=== PATIENT | female | born 1975 | race Caucasian/White ===

== ENCOUNTER 2018-08-07 18:29 | Emergency (ER) | payer BC, OTHER ==
[~2018-08-07] VITALS: Ht 162.6 cm; Wt 55.5 kg
[2018-08-07 18:31] VITALS: BP 138/85; PULSE 73; RESP 18; Ht 162.6 cm; Wt 55.5 kg
--- NOTE | 2018-08-07 21:06 | ERD ---
ER Documentation Chief Complaint Chief Complaint 11 weeks preg, light vag. bleed since last night. denies pain. HPI 42-year-old female who is G4, P3 approximately 11 weeks stating that she had some very light vaginal bleeding that she describes as spotting that occurred last night after she had sexual intercourse. She had a little bit of spotting today 2. She denies any pelvic pain. No fever. No nausea or vomiting or diarrhea. No dysuria hematuria frequency. ROS All systems reviewed and are negative except as per history of present illness. Allergies Allergies: Coded Allergies: No Known Allergy (Unverified , 08/07/18) PMhx/Soc Medical and Surgical Hx: pt denies Medical Hx, pt denies Surgical Hx History of Surgery: No Anesthesia Reaction: No Hx Neurological Disorder: No Hx Respiratory Disorders: No Hx Cardiac Disorders: No Hx Psychiatric Problems: No Hx Miscellaneous Medical Probl: No Hx Alcohol Use: No Hx Substance Use: No Hx Tobacco Use: No Smoking Status: Never smoker FmHx Family History: No diabetes Physical Exam Vitals Vital Signs Date Temp Pulse Resp B/P (MAP) Pulse Ox O2 O2 Flow FiO2 Time Delivery Rate 08/07/18 98.1 73 18 138/85 99 18:31 (102) Physical Exam INITIAL VITAL SIGNS: Reviewed by me GENERAL: Awake, alert and oriented x 4, well appearing, nontoxic, speaking in full sentences. No acute distress HEAD: Atraumatic NECK: Supple. No masses. Full range of motion. No meningismus. No midline tenderness. EYES: EOMI. PERRL. RESPIRATORY: Clear to auscultation bilaterally. Symmetric chest wall rise. No wheezing or rales. No accessory muscle use. CV: Regular rate and rhythm. No murmurs, rubs, or gallops. ABDOMEN: Soft, non-distended. Nontender. Negative [place]. Negative McBurneys point tenderness. No CVA tenderness bilaterally. No guarding. No rebound. Result Diagram: 08/07/181942 Results 24 hrs Laboratory Tests Test 08/07/18 19:43 White Blood Count 8.4 10^3/ul Red Blood Count 4.41 10^6/ul Hemoglobin 13.6 g/dl Hematocrit 40.6 % Mean Corpuscular Volume 92.1 fl Mean Corpuscular Hemoglobin 30.8 pg Mean Corpuscular Hemoglobin Concent 33.5 g/dl Red Cell Distribution Width 11.9 % Platelet Count 294 10^3/UL Mean Platelet Volume 10.4 fl Immature Granulocytes % 0.700 % Neutrophils % 65.6 % Lymphocytes % 26.0 % Monocytes % 6.0 % Eosinophils % 1.0 % Basophils % 0.7 % Nucleated Red Blood Cells % 0.0 /100WBC Immature Granulocytes # 0.060 10^3/ul Neutrophils # 5.5 10^3/ul Lymphocytes # 2.2 10^3/ul Monocytes # 0.5 10^3/ul Eosinophils # 0.1 10^3/ul Basophils # 0.1 10^3/ul Nucleated Red Blood Cells # 0.0 10^3/ul Urine Color YELLOW Urine Clarity CLEAR Urine pH 5.0 Urine Specific [place] 1.012 Urine Ketones NEGATIVE mg/dL Urine Nitrite NEGATIVE mg/dL Urine Bilirubin NEGATIVE mg/dL Urine Urobilinogen NEGATIVE mg/dL Urine Leukocyte Esterase NEGATIVE Ernestina/ul Urine Microscopic RBC 1 /HPF Urine Microscopic WBC 1 /HPF Urine Bacteria FEW /HPF Urine Hemoglobin 1+ mg/dL Urine Glucose NEGATIVE mg/dL Urine Total Protein NEGATIVE mg/dl Beta HCG, Quantitative 3560.1 mIU/ml Procedures/MDM The differential diagnosis includes but is not limited to threatened/incomplete/inevitable/complete , ectopic , non- related bleeding, and others. Patient's findings are consistent with demise. She was given copies of all of her labs and ultrasound. She has appointment with CAR LUBRICATOR tomorrow. Patient counseled regarding my diagnostic impression and care plan. Prior to discharge all questions answered. Pt agrees with treatment plan and understands strict return precautions. Pt is instructed to follow up with primary care provider within 24-48 hours. Precautionary instructions provided including instructions to return to the ER if not improving or for any worsening or changing symptoms or concerns. Departure Diagnosis: Primary Impression: demise Condition: Stable Patient Instructions: Possible Miscarriage (Threatened ) Additional Instructions: Llame al doctor [place] y aubrey tresa WINNIE PARA DENTRO DE 1-2 KUMAR.Dgale a la secretaria que nosotros le instruimos hacer esta winnie.Avise o llame si jasso condicin se empeora antes de la winnie. Regresa aqui si peor o no mejor. KRYSTAL MCPHERSON PA-C Aug 07, 2018 21:06
== END 2018-08-07 21:07 | disposition home or self-care (01) ==
LOC: FTE 18:29
DX: O02.1 Missed abortion (principal)
CPT/HCPCS: 36415; 76801; 81001; 84702; 85025; 86900; 86901; Z7502

== ENCOUNTER 2018-08-09 17:23 | Emergency (ER) | payer BC ==
[~2018-08-09] VITALS: Wt 65.0 kg
[2018-08-09] MEDS ORDERED: SOD CHLORIDE 0.9% 1,000 ML IV STA (18:09)
[2018-08-09] MEDS ORDERED: ACETAMINOPHEN 325 MG TAB PO STA (18:09)
--- NOTE | 2018-08-09 18:20 | ERD ---
ER Documentation Chief Complaint Chief Complaint VAG BLEED 12 WEEKS PREG HEAVY BLEEDING TODAY HPI This is a 42-year-old female who presents to the emergency room with complaint of vaginal bleeding during . Patient was seen at this ER 3 days ago and diagnosed with demise, seen at her primary care provider yesterday w ith no heartbeat detected on ultrasound, patient was offered "pills" to help with miscarriage, patient did not take medications. Today stating she had white drainage and is having contractions. Patient alert and appropriate at time of evaluation. Gestation states: 11 weeks 6 days ROS All systems reviewed and are negative except as per history of present illness. Medications Home Meds Active Scripts Ibuprofen* (Motrin*) 600 Mg Tab, 600 MG PO Q6 for pain, #30 TAB Prov:BRO LOWE NP 08/09/18 Allergies Allergies: Coded Allergies: No Known Allergy (Unverified , 08/07/18) PMhx/Soc Medical and Surgical Hx: pt denies Medical Hx, pt denies Surgical Hx History of Surgery: No Anesthesia Reaction: No Hx Neurological Disorder: No Hx Respiratory Disorders: No Hx Cardiac Disorders: No Hx Psychiatric Problems: No Hx Miscellaneous Medical Probl: No Hx Alcohol Use: No Hx Substance Use: No Hx Tobacco Use: No Smoking Status: Never smoker FmHx Family History: No diabetes, No coronary disease, No other Physical Exam Vitals Vital Signs Date Temp Pulse Resp B/P (MAP) Pulse Ox O2 O2 Flow FiO2 Time Delivery Rate 08/09/18 98.9 84 18 117/74 100 Room Air 21:25 (88) 08/09/18 84 20 132/82 100 Room Air 19:35 (99) 08/09/18 99.5 106 18 157/70 99 17:25 (99) Physical Exam Const: No acute distress Head: Atraumatic Eyes: Normal Conjunctiva ENT: Normal External Ears, Nose and Mouth. Neck: Full range of motion. No meningismus. Resp: Clear to auscultation bilaterally Cardio: Regular rate and rhythm, no murmurs Abd: Soft, non tender, non distended. Normal bowel sounds Skin: No petechiae or rashes Back: No midline or flank tenderness Ext: No cyanosis, or edema Neur: Awake and alert Psych: Normal Mood and Affect Result Diagram: 08/09/18 6290 Results 24 hrs Laboratory Tests Test 08/09/18 18:41 White Blood Count 14.6 10^3/ul Red Blood Count 3.93 10^6/ul Hemoglobin 12.3 g/dl Hematocrit 36.0 % Mean Corpuscular Volume 91.6 fl Mean Corpuscular Hemoglobin 31.3 pg Mean Corpuscular Hemoglobin Concent 34.2 g/dl Red Cell Distribution Width 11.9 % Platelet Count 277 10^3/UL Mean Platelet Volume 9.9 fl Immature Granulocytes % 0.400 % Neutrophils % 78.7 % Lymphocytes % 14.6 % Monocytes % 5.1 % Eosinophils % 0.6 % Basophils % 0.6 % Nucleated Red Blood Cells % 0.0 /100WBC Immature Granulocytes # 0.060 10^3/ul Neutrophils # 11.5 10^3/ul Lymphocytes # 2.1 10^3/ul Monocytes # 0.8 10^3/ul Eosinophils # 0.1 10^3/ul Basophils # 0.1 10^3/ul Nucleated Red Blood Cells # 0.0 10^3/ul Urine Color RED Urine Clarity SLIGHTLY CLOUDY Urine pH 6.0 Urine Specific [place] 1.006 Urine Ketones TRACE mg/dL Urine Nitrite NEGATIVE mg/dL Urine Bilirubin NEGATIVE mg/dL Urine Urobilinogen NEGATIVE mg/dL Urine Leukocyte Esterase NEGATIVE Ernestina/ul Urine Microscopic RBC > 182 /HPF Urine Microscopic WBC 0 /HPF Urine Bacteria FEW /HPF Urine Hemoglobin 2+ mg/dL Urine Glucose 1+ mg/dL Urine Total Protein 2+ mg/dl Beta HCG, Quantitative 1549.2 mIU/ml Current Medications Medications Dose Sig/Laura Start Time Status Last (Trade) Ordered Route PRN Stop Time Admin Dose Reason Admin Sodium 1,000 ml @ Q1H STAT 08/09/18 DC 08/09/18 Chloride 1,000 mls/hr IV 18:09 19:56 08/09/18 19:08 650 mg ONCE STAT 08/09/18 DC 08/09/18 Acetaminophen PO 18:09 19:56 (Tylenol 08/09/18 18:11 Tab) Sodium 1,000 ml @ Q1H ONCE 08/09/18 DC Chloride 1,000 mls/hr IV 20:30 08/09/18 21:29 Ketorolac 30 mg ONCE STAT 08/09/18 DC Tromethamine IV 20:17 (Toradol) 08/09/18 20:18 Cefazolin 50 ml @ ONCE IVPB 08/09/18 DC 08/09/18 Sodium 100 mls/hr 21:30 21:37 08/09/18 21:59 Procedures/MDM This is a 42-year-old female presenting to the emergency room with complaint of continued vaginal bleeding. Patient was diagnosed with demise 3 days ago, seen at her OB yesterday but did not follow the plan to take occasions to help complete her miscarriage. She is here today because the bleeding continues and she is having contractions. ED COURSE: The patient was stable throughout ED course. I kept the patient and/or family informed of laboratory and diagnostic imaging results throughout the ED course. DIAGNOSTIC IMAGING: Post miscarriage: Limited study without evidence of retained products of conception or blood clots in the endometrial canal. Read by radiologist. PROCEDURES: Patient had spontaneous miscarriage with passing of tissue while in ED. POC sent to pathology. Pt tolerated well, remained hemodynamically stable. Vaginal exam with removal of tissue and clean-up of vaginal vault s/p miscarriage. This MANAGER OF FINANCIAL attempted to remove all tissue and was unable to successfully remove tissue from os and abort bleeding. Laborist on-call Dr. Mast came and explored vaginal vault and was able to successfully remove tissue resulting in clean os. Repeat vaginal US reassuring for absence of retained products. MEDICATIONS GIVEN: NS, tylenol Patient tolerated medication well with no adverse reactions. Patient reported improvement in pain. MDM: This patient has had a completed miscarriage. She is stable and appropriate for follow-up with PMD. Patient provided with strict ER precautions. Patient states she has follow-up appt already made with her OB for 2 days. Pt verbalized understanding of s/sx of infection, bleeding, hypotension and when to return to ER. There is low suspicion for retained products, infection, or concern for impending hemorrhage. Patient counseled regarding my diagnostic impression and care plan. Prior to discharge all questions answered using spout liner helper service. Pt agrees with treatment plan and understands strict return precautions. DISPOSITION: The patient has been discharge home to follow-up with community physician. Departure Diagnosis: Primary Impression: Miscarriage Condition: Stable Patient Instructions: Miscarriage Referrals: [facility] Additional Instructions: Thank you very much for allowing us to participate in your care. Your health and safety is our top priority at [facility]. Call your primary care doctor TOMORROW for an appointment during the next 2-4 days and bring all the information and medications prescribed. Have prescriptions filled and follow precisely the directions on the label. If the symptoms get worse and your provider is unavailable, return to the Emergency Department immediately. BRO LOWE NP Aug 09, 2018 18:20
[2018-08-09] MEDS ORDERED: KETOROLAC 30 MG INJ IV STA (20:17)
[2018-08-09] MEDS ORDERED: SOD CHLORIDE 0.9% 1,000 ML IV ONE (20:30)
[2018-08-09] MEDS ORDERED: CEFAZOLIN 1 GM/50 ML (PMX) 50 ML IVPB SCH (21:30)
[2018-08-09] MEDS ORDERED: IBUP-1542 PO (22:28)
--- NOTE | 2018-08-09 22:32 | CONS ---
Assessment/Plan Assessment/Plan Assessment/Plan (Daily) Complete AB Pelvic examination revealed no further active bleeding Patient received antibiotics IV x1 dose Patient Rh is positive Patient received prescription for pain meds Patient counseled to follow-up with her own [facility] clinic on Sunday, August 12, 2018 Consultation Date/Type/Reason Admit Date/Time Date of Consultation: Aug 09, 2018 Type of Consult Gynecology Reason for Consultation SAB Date/Time of Note DATE: 08/09/18 TIME: 22:22 Hx of Present Illness This is a 42-year-old who was recently diagnosed with missed AB presents with vaginal bleeding and passing products of conception Gestational sac and products of conception were sent for pathology evaluation Patient was examined to reassure the complete passage of all products of conception Constitutional: no complaints, improved Eyes: no complaints ENT: no complaints Respiratory: no complaints Cardiovascular: no complaints Gastrointestinal: no complaints Genitourinary: bleeding (Vaginal bleeding) Musculoskeletal: no complaints Skin: no complaints Neurologic: no complaints Endocrine: no complaints Lymphatic: no complaints Psychological: no complaints, nl mood/affect Immunologic: no complaints Past Medical History Medical History: no pertinent history Home Meds Active Scripts Ibuprofen* (Motrin*) 600 Mg Tab, 600 MG PO Q6 for pain, #30 TAB Prov:BRO LOWE PRESS MAINTAINER 08/09/18 Allergies: Coded Allergies: No Known Allergy (Unverified , 08/07/18) Past Surgical History Past Surgical Hx: no surgical history Family History Significant Family History: no pertinent family hx Social History Smoking Status: Never smoker Exam/Review of Systems Exam Vitals Vital Signs Date Temp Pulse Resp B/P (MAP) Pulse Ox O2 O2 Flow FiO2 Time Delivery Rate 08/09/18 98.9 84 18 117/74 100 Room Air 21:25 (88) Constitutional: alert, oriented, well developed Additional Comments Upon pelvic speculum examination Blood clots and tissues were removed from cervical os No further bleeding noted Results Result Diagram: 08/09/18 5444 Results 24hrs Laboratory Tests Test 08/09/18 18:41 White Blood Count 14.6 #H Red Blood Count 3.93 L Hemoglobin 12.3 Hematocrit 36.0 L Mean Corpuscular Volume 91.6 Mean Corpuscular Hemoglobin 31.3 Mean Corpuscular Hemoglobin Concent 34.2 Red Cell Distribution Width 11.9 Platelet Count 277 Mean Platelet Volume 9.9 Immature Granulocytes % 0.400 Neutrophils % 78.7 H Lymphocytes % 14.6 L Monocytes % 5.1 Eosinophils % 0.6 Basophils % 0.6 Nucleated Red Blood Cells % 0.0 Immature Granulocytes # 0.060 H Neutrophils # 11.5 H Lymphocytes # 2.1 Monocytes # 0.8 Eosinophils # 0.1 Basophils # 0.1 Nucleated Red Blood Cells # 0.0 Urine Color RED Urine Clarity SLIGHTLY CLOUDY A Urine pH 6.0 Urine Specific [place] 1.006 Urine Ketones TRACE A Urine Nitrite NEGATIVE Urine Bilirubin NEGATIVE Urine Urobilinogen NEGATIVE Urine Leukocyte Esterase NEGATIVE Urine Microscopic RBC > 182 H Urine Microscopic WBC 0 Urine Bacteria FEW A Urine Hemoglobin 2+ H Urine Glucose 1+ H Urine Total Protein 2+ H Beta HCG, Quantitative 1549.2 Imaging Imaging PROCEDURE: US OB. CLINICAL INDICATION: Evaluate for retained products of conception TECHNIQUE: Transabdominal views of the pelvis are available for review. COMPARISON: Earlier preoperative study same date 1823 hours FINDINGS: There is no free fluid in the pelvis. The endometrial canal now has a maximal AP dimension of 17 mm. There is no evidence of endometrial fluid or endometrial mass. There is no fluid or mass in the endocervical canal. IMPRESSION: 1. Limited study without evidence of retained products of conception or blood clots in the endometrial canal. RPTAT:AAJJ Physician Evan Date Time Electronically viewed and signed by Physician Evan on 08/09/2018 22:18 GW/ CC: BRO LOWE NP [id number] SARAH BETH MORGAN MD Aug 09, 2018 22:32
[2018-08-09 22:36] VITALS: BP 121/72; PULSE 73; RESP 18
== END 2018-08-09 22:43 | disposition home or self-care (01) ==
LOC: FTE 17:23
DX: O03.9 Complete or unspecified spontaneous abortion without complication (principal)
CPT/HCPCS: 36415; 76801; 81001; 84702; 85025; 96361; 96365; J0690; J7030; Z7502; Z7610

== ENCOUNTER 2018-08-10 13:48 | Emergency (ER) | payer BC ==
[~2018-08-10] VITALS: Ht 157.5 cm; Wt 55.2 kg
[~2018-08-10 13:48] MED LIST: IBUP-1542 PO
[2018-08-10 13:56] VITALS: BP 111/53; PULSE 90; RESP 17; Ht 157.5 cm; Wt 55.2 kg
--- NOTE | 2018-08-10 18:50 | ERD ---
ER Documentation Chief Complaint Chief Complaint PT HAS VB 3RD VISIT IN 4 DAYS POST SPONTANEOUS HPI History of Present Illness: 42-year-old female with no past medical history waylon ng in today with complaint of vaginal bleeding. Patient reports she was at [facility] emergency department yesterday it was confirmed that she is having a miscarriage. Patient is concerned that she is losing too much blood and is on sure if large clots that she is passing is too much. Patient reports using approximately 3 pads in the past 12 hours. Patient denies dizziness, palpitations, weakness, syncopal episodes. Patient reports passing quite at approximately 10 AM this morning. Patient reports that she feels that she just passed a clot since arriving to the emergency department. No acute distress noted At home pharmacological/nonpharmacological treatment for symptoms: DENIES Denies social concerns; Denies recent foreign travel Mask Layout Designer patient #[id number] use for HPI and disposition. ROS All systems reviewed and are negative except as per history of present illness. Medications Home Meds Active Scripts Ibuprofen* (Motrin*) 600 Mg Tab, 600 MG PO Q6 for pain, #30 TAB Prov:BRO LOWE CLEANING PORTER 08/09/18 Allergies Allergies: Coded Allergies: No Known Allergy (Unverified , 08/10/18) PMhx/Soc History of Surgery: No Anesthesia Reaction: No Hx Neurological Disorder: No Hx Respiratory Disorders: No Hx Cardiac Disorders: No Hx Psychiatric Problems: No Hx Miscellaneous Medical Probl: No Hx Alcohol Use: No Hx Substance Use: No Hx Tobacco Use: No Smoking Status: Never smoker FmHx Family History: No diabetes, No coronary disease Physical Exam Vitals Vital Signs Date Temp Pulse Resp B/P (MAP) Pulse Ox O2 O2 Flow FiO2 Time Delivery Rate 08/10/18 98.6 90 17 111/53 100 13:56 (72) Physical Exam Const: No acute distress, afebrile Head: Atraumatic Eyes: Normal Conjunctiva ENT: Normal External Ears, Nose and Mouth. Neck: Full range of motion. No meningismus. Resp: Clear to auscultation bilaterally Cardio: Regular rate and rhythm, no murmurs Abd: Soft, non tender, non distended. No guarding, no masses, no rigidity Skin: No petechiae or rashes Back: No midline or flank tenderness Ext: No cyanosis, or edema Neur: Awake and alert x3, speaking in clear sentences, no focal deficits or facial asymmetry Psych: Normal Mood and Affect Vaginal exam deferred, patient refused Procedures/MDM ED course includes a thorough examination and history. Medications: -- Imaging: -- Labs: Cytology for products of conception Low suspicion for life-threatening medical emergency. Low suspicion for gynecologic or obstetric emergency requires hospitalization or immediate intervention. Patient is hemodynamically stable not symptomatic to blood loss. No signs of patient hemorrhaging, patient has only had approximately 3 pads in the past 12 hours Otherwise healthy patient presenting with constellation of symptoms likely representing uncomplicated miscarriage as characterized by history, physical exam findings. No respiratory distress, otherwise relatively well appearing and nontoxic. Patient educated on diagnoses, prescriptions, follow-up care, return precautions. Strict return precautions given for worsening condition; questions answered discharge. Disposition for discharge with followup in 2 days with PCP/clinic. Departure Diagnosis: Primary Impression: Miscarriage Condition: Stable Patient Instructions: Miscarriage Referrals: TATY MANN MD (PCP) MANAGER [place] [id number] [facility] [address] [place] [address] OFFICE FAX BHARATI TERRY [address] [place] [address] [address] [address] [place] [address] [address] [facility] [address] [facility] [address] [address] [address] [address] [place] [address] [facility] [address] [address] [place] [address] [phone] [facility] [address] - DANYEL CEBALLOS [address], [facility] [address] [address] LECHUGA, [facility] [address] [address] [address] VILLARREAL, FARID [address] [place] [address] COUNTS INCLUDE 234 BEDS AT THE [facility] () Talia se lockhart hecho un examen mdico de control que le indica que no est en tresa condicin que requiera tratamiento urgente en el Departamento de Emergencia. Un estudio ms profundo y el tratamiento de torres condicin pueden esperar sin ningn riesgo hasta que usted sea atendida/o en el consultorio de torres mdico o tresa clnica. Es responsabilidad suya arreglar tresa morgan para el seguimiento del yaya. MANEJO DE CONDICIONES NO URGENTES EN EL FUTURO 1) Si usted tiene un mdico de atencin primaria: Usted debera llamar a torres mdico de atencin primaria antes de venir al departamento de emergencia. Despus de las horas de consultorio, torres doctor o torres asociado/a est disponible por telfono. El mdico o enfermero de netta en el servicio telefnico puede asesorarle por barber medio para atender el problema, o yaya contrario se puede programar tresa morgan. 2) Si usted no tiene un mdico de atencin primaria: Llame al mdico o clnica de referencia que aparece abajo mark las horas de consultorio para hacer tresa morgan para que le vean. CLINICAS: [facility] [phone] [address] [facility] [phone] [facility] [phone] [address] [facility]. [facility] [phone] [facility]. [facility] [phone] [facility]. [phone] [address] [facility]. [facility] () Talia se lockhart hecho un examen mdico de control que le indica que no est en tresa condicin que requiera tratamiento urgente en el Departamento de Emergencia. Un estudio ms profundo y el tratamiento de torres condicin pueden esperar sin ningn riesgo hasta que usted sea atendida/o en el consultorio de torres mdico o tresa clnica. Es responsabilidad suya arreglar tresa morgan para el seguimiento del yaya. MANEJO DE CONDICIONES NO URGENTES EN EL FUTURO 1) Si usted tiene un mdico de atencin primaria: Talia debera llamar a torres mdico de atencin primaria antes de venir al departamento de emergencia. Despus de las horas de consultorio, torres doctor o torres asociado/a est disponible por telfono. El mdico o enfermero de netta en el servicio telefnico puede asesorarle por barber medio para atender el problema, o yaya contrario se puede programar tresa morgan. 2) Si usted no tiene un mdico de atencin primaria: Llame al mdico o condado institucions de referencia que aparece abajo mark las horas de consultorio para hacer tresa morgan para que le vean. SI USTED NO PUEDE PAGAR PARA LUIS UN MEDICO puede ir a: [facility] [address] [place] [address] [facility] [address] [place] [address] [facility] [address] [place] [address] [address] [place] [address] [place] [address] Additional Instructions: Muchas jeff por permitirnos participar en torres cuidado. Torres bahman y seguridad es nuestra principal prioridad en [facility]. Es importante leer todas las instrucciones de dot y la educacin que se proporcionan en torres paquete de dot. Llame a torres mdico de cabecera MAANA para tresa morgan mark los prximos 2 a 4 roberson y traiga toda la informacin. Si lockhart aumentado el sangrado con remojo 1 almohadilla por hora, regrese a la sola de emergencias. Si tiene dificultad para respirar, mareos, desmayo; Regreso al servicio de urgencias. Si los sntomas empeoran y torres proveedor no est disponible, regrese inmediatamente al Departamento de Emergencias. ---- Thank you very much for allowing us to participate in your care. Your health and safety is our top priority at [facility]. It is important to read all discharge instructions and education provided in your discharge packet. Call your primary care doctor TOMORROW for an appointment during the next 2-4 days and bring all the information. If you have increased bleeding with soaking 1 pad per hour, return to emergency room. If you have any shortness of breath, dizziness, passing out; Return to the emergency room department If the symptoms get worse and your provider is unavailable, return to the Emergency Department immediately. KINSEY CAPUTO NP Aug 10, 2018 18:50
== END 2018-08-10 17:01 | disposition home or self-care (01) ==
LOC: FTE 13:48
DX: O03.9 Complete or unspecified spontaneous abortion without complication (principal)
CPT/HCPCS: 88305; 99282

== ENCOUNTER 2018-09-24 18:40 | Emergency (ER) | payer BC ==
[~2018-09-24] VITALS: Ht 162.6 cm; Wt 56.0 kg
[2018-09-24 19:14] VITALS: Ht 162.6 cm; Wt 56.0 kg
--- NOTE | 2018-09-24 21:15 | ERD ---
ER Documentation Chief Complaint Chief Complaint GENERALIZED AP SINCE July HPI 42-year-old female, G7, P3, status post D&C on 08/10/2018, presents to the emergency department, complaining of persistent pelvic pain associated with abdominal bloating for approximately 6 weeks. Otherwise, no fever, no chills, no vaginal bleeding, no diarrhea or constipation. The pain is described as colicky, intermittent, 6/10. ROS All systems reviewed and are negative except as per history of present illness. Medications Home Meds Active Scripts Hydrocodone/Acetaminophen ([place] 5-325 Tablet) 1 Each Tablet, 1 TAB PO BID PRN for PAIN, #6 TAB Prov:YOEL FINNEY MD 09/24/18 Ibuprofen* (Motrin*) 600 Mg Tab, 600 MG PO Q6H PRN for PAIN AND OR ELEVATED TEMP , #30 TAB Prov:YOEL FINNEY MD 09/24/18 Ibuprofen* (Motrin*) 600 Mg Tab, 600 MG PO Q6 for pain, #30 TAB Prov:BRO LOWE NP 08/09/18 Allergies Allergies: Coded Allergies: No Known Allergy (Unverified , 08/10/18) PMhx/Soc Medical and Surgical Hx: pt denies Medical Hx, pt denies Surgical Hx History of Surgery: No Anesthesia Reaction: No Hx Neurological Disorder: No Hx Respiratory Disorders: No Hx Cardiac Disorders: No Hx Psychiatric Problems: No Hx Miscellaneous Medical Probl: No Hx Alcohol Use: No Hx Substance Use: No Hx Tobacco Use: No Smoking Status: Never smoker FmHx Family History: diabetes Physical Exam Vitals Vital Signs Date Temp Pulse Resp B/P (MAP) Pulse Ox O2 O2 Flow FiO2 Time Delivery Rate 09/24/18 98.2 68 18 130/83 97 23:29 (99) 09/24/18 98.9 68 17 140/73 98 19:14 (95) Physical Exam Patient alert, oriented, vital signs stable. HEAD: Normocephalic, atraumatic. EYES: PERRLA, EOMI, Sclera and conjunctiva appear normal. NOSE: Clear and patent nostrils. EARS: Canals clear, tympanic membranes WNL. MOUTH: normal lips and tongue, no oral lesions. THROAT: Normal oropharynx, no tonsillar exudates. NECK: Supple, No lymphadenopathy. Full ROM without pain or tenderness. HEART: RRR, no rubs, murmurs, clicks or gallops. LUNGS: Clear to auscultation. ABDOMEN: Soft, minimal tenderness to deep palpation in the pelvic area, no peritoneal signs, without masses or hepatosplenomegaly. EXTREMITIES: No edema bilaterally. BACK: Full ROM, no deformity, normal back exam NEURO: Cranial nerves grossly intact, no motor or sensory deficit SKIN: No rashes, no petechia. Result Diagram: 09/24/18215509/24/182155 Results 24 hrs Laboratory Tests Test 09/24/18 21:56 09/24/18 21:58 White Blood Count 7.5 10^3/ul Red Blood Count 4.31 10^6/ul Hemoglobin 13.1 g/dl Hematocrit 40.0 % Mean Corpuscular Volume 92.8 fl Mean Corpuscular Hemoglobin 30.4 pg Mean Corpuscular Hemoglobin Concent 32.8 g/dl Red Cell Distribution Width 11.3 % Platelet Count 275 10^3/UL Mean Platelet Volume 9.9 fl Immature Granulocytes % 0.400 % Neutrophils % 57.4 % Lymphocytes % 34.3 % Monocytes % 6.0 % Eosinophils % 1.1 % Basophils % 0.8 % Nucleated Red Blood Cells % 0.0 /100WBC Immature Granulocytes # 0.030 10^3/ul Neutrophils # 4.3 10^3/ul Lymphocytes # 2.6 10^3/ul Monocytes # 0.5 10^3/ul Eosinophils # 0.1 10^3/ul Basophils # 0.1 10^3/ul Nucleated Red Blood Cells # 0.0 10^3/ul Urine Color YELLOW Urine Clarity SLIGHTLY CLOUDY Urine pH 5.0 Urine Specific [place] 1.013 Urine Ketones NEGATIVE mg/dL Urine Nitrite NEGATIVE mg/dL Urine Bilirubin NEGATIVE mg/dL Urine Urobilinogen NEGATIVE mg/dL Urine Leukocyte Esterase NEGATIVE Ernestina/ul Urine Microscopic RBC 1 /HPF Urine Microscopic WBC 9 /HPF Urine Squamous Epithelial Cells FEW /HPF Urine Bacteria FEW /HPF Urine Hemoglobin NEGATIVE mg/dL Urine Glucose NEGATIVE mg/dL Urine Total Protein NEGATIVE mg/dl Sodium Level 141 mmol/L Potassium Level 4.5 mmol/L Chloride Level 105 mmol/L Carbon Dioxide Level 29 mmol/L Anion Gap 7 Blood Urea Nitrogen 12 mg/dl Creatinine 0.72 mg/dl Est Glomerular Filtrat Rate mL/min > 60 mL/min Glucose Level 98 mg/dl Calcium Level 9.7 mg/dl Total Bilirubin 0.5 mg/dl Direct Bilirubin 0.00 mg/dl Indirect Bilirubin 0.5 mg/dl Aspartate Amino Transf (AST/SGOT) 33 IU/L Alanine Aminotransferase (ALT/SGPT) 35 IU/L Alkaline Phosphatase 69 IU/L Total Protein 7.9 g/dl Albumin 4.5 g/dl Globulin 3.40 g/dl Albumin/Globulin Ratio 1.32 Lipase 145 U/L POC Beta HCG, Qualitative NEGATIVE Procedures/MDM Vital signs stable. Differential diagnosis considered include UTI, cystitis, , endometriosis, pelvic inflammatory disease, ruptured ovarian cyst, ectopic , appendicitis, kidney stone. Less likely malignancy or acute abdomen but is still a possibility. During the ED course the patient remained stable, no new complaints. Results and clinical impression discussed with the patient who agrees with management. The patient is stable to be treated outpatient and will be discharged home. Follow up with the primary care provider in the next 48h has been recommended. If symptoms persist, worsen or new symptoms develop, then patient should return to the ED immediately. Instructions explained and given directly by me to the patient with ackno wledgment and demonstrated understanding. Disclaimer: Inadvertent spelling and grammatical errors are likely due to EHR/dictation software use and do not reflect on the overall quality of patient care. Also, please note that the electronic time recorded on this note does not necessarily reflect the actual time of the patient encounter. Departure Diagnosis: Primary Impression: Pelvic pain Condition: Stable Additional Instructions: Muchas jeff por [facility] para jasso servicio. Esperamos que en jasso visita a la sola de emergencia jasso problema medico haya sido solucionado y que se sienta mucho mejor. Para estar seguros que jasso mejoria sigue en proceso, le pedimos el favor de hacer tresa morgan de seguimiento medico con jasso doctor primario en los proximos 2-4 gil. Lleve con usted estos documentos y las medicinas recetadas. Si rima sintomas empeoran, NO SE ESPERE, por favor regrese a sola de emergencia INMEDIATAMENTE. En yaya que usted no tenga un mdico de atencin primaria: Llame al mdico o clnica comunitaria de referencia que aparece abajo mark las horas de consultorio para hacer tresa morgan para que le vean. CLINICAS: [facility] [phone] [facility] [phone] [facility] [place] [phone] [facility] [phone] [facility] [phone] [facility] [phone] YOEL AMADOR MD Sep 24, 2018 21:15
[2018-09-24] MEDS ORDERED: IBUP-1542 PO (23:14)
[2018-09-24] MEDS ORDERED: HYDR-4011 PO (23:15)
[2018-09-24 23:29] VITALS: BP 130/83; PULSE 68; RESP 18
== END 2018-09-24 23:31 | disposition home or self-care (01) ==
LOC: FTE 18:40
DX: R10.2 Pelvic and perineal pain (principal)
CPT/HCPCS: 36415; 76856; 80053; 81001; 81025; 83690; 85025; Z7502; 81003

== ENCOUNTER 2018-10-07 14:34 | Emergency (ER) | payer BC ==
[~2018-10-07] VITALS: Ht 160 cm; Wt 56.7 kg
[~2018-10-07 14:34] MED LIST changes: +HYDR-4011 PO
[2018-10-07 14:49] VITALS: BP 118/68; PULSE 79; RESP 18; Ht 160 cm; Wt 56.7 kg
--- NOTE | 2018-10-07 16:17 | ERD ---
ER Documentation Chief Complaint Chief Complaint VAGINAL BLEEDING W/CLOTS AFTER HAVING 08/09 HPI 42-year-old female, G7, P3, status post D&C on 08/10/2018, presents to the emergency department, complaining of heavy vaginal bleeding that started 3 days ago, passing clots and tissue. Otherwise, no fever, no chills, no diarrhea or constipation. ROS All systems reviewed and are negative except as per history of present illness. Medications Home Meds Active Scripts Ibuprofen* (Motrin*) 400 Mg Tab, 400 MG PO Q6H PRN for PAIN AND OR ELEVATED TEMP, #20 TAB Prov:YOEL FINNEY MD 10/07/18 Hydrocodone/Acetaminophen ([place] 5-325 Tablet) 1 Each Tablet, 1 TAB PO BID PRN for PAIN, #6 TAB Prov:YOEL FINNEY MD 09/24/18 Ibuprofen* (Motrin*) 600 Mg Tab, 600 MG PO Q6H PRN for PAIN AND OR ELEVATED TEMP, #30 TAB Prov:YOEL FINNEY MD 09/24/18 Ibuprofen* (Motrin*) 600 Mg Tab, 600 MG PO Q6 for pain, #30 TAB Prov:BRO LOWE NP 08/09/18 Allergies Allergies: Coded Allergies: No Known Allergy (Unverified , 08/10/18) PMhx/Soc History of Surgery: No Anesthesia Reaction: No Hx Neurological Disorder: No Hx Respiratory Disorders: No Hx Cardiac Disorders: No Hx Psychiatric Problems: No Hx Miscellaneous Medical Probl: No Hx Alcohol Use: No Hx Substance Use: No Hx Tobacco Use: No Physical Exam Vitals Vital Signs Date Temp Pulse Resp B/P (MAP) Pulse Ox O2 O2 Flow FiO2 Time Delivery Rate 10/07/18 98.1 79 18 118/68 100 14:49 (85) Physical Exam Const: No acute distress Head: Atraumatic Eyes: Normal Conjunctiva ENT: Normal External Ears, Nose and Mouth. Neck: Full range of motion. No meningismus. Resp: Clear to auscultation bilaterally Cardio: Regular rate and rhythm, no murmurs Abd: Soft, non tender, non distended. Normal bowel sounds Skin: No petechiae or rashes Back: No midline or flank tenderness Ext: No cyanosis, or edema Neur: Awake and alert Psych: Normal Mood and Affect Results 24 hrs Laboratory Tests Test 10/07/18 16:29 POC Beta HCG, Qualitative NEGATIVE DIAGNOSTIC IMAGING REPORT Patient: CINDY WATSON : 1975 Age: 42 Sex: F MR #: [id number] DOS: 10/07/18 1614 Ordering MD: YOEL FINNEY MD Location: [facility] Room/Bed: PROCEDURE: US Pelvis. CLINICAL INDICATION: menomethrorrhagia TECHNIQUE: Multiple sonographic images of the pelvis were obtained utilizing a transabdominal and endovaginal technique. The images were reviewed on a PACS workstation. COMPARISON: 09/24/2018 FINDINGS: The uterus is visualized and measures 9.3 x 6.1 x 4.9 cm. The endometrial echo complex measures 4 mm. There is no evidence for free fluid. The right ovary measures 2.8 x 2.1 x 1.7 cm.. The left ovary measures 2.2 x 2.5 x 2 cm. No adnexal masses are noted. IMPRESSION: Heterogeneous uterus. Bilateral ovarian flow. Correlate with test to exclude abnormal or ectopic . Physician Michelle Date Time Electronically viewed and signed by Physician Michelle on 10/07/2018 17:05 Procedures/MDM Vital signs stable, Physical exam unremarkable, abdomen soft, nontender. Patient hemodynamically stable. Differential diagnosis include but not limited to: , ovarian cyst, fibroids, endometriosis, malignancy, dysfunctional bleeding, hematologic condition. Low suspicion for PID, no signs of hypovolemic shock. Physical examination and clinical presentation consistent most likely with dysfunctional uterine bleeding, likely an ovulatory. During the ED course the patient remained stable, no new complaints. Results and clinical impression discussed with patient who agrees with management. The patient was instructed to follow up with the primary care provider in the next 48h. If symptoms persist, worsen or new symptoms develop, then patient should return to the ED immediately. Instructions explained and given directly by me to the patient with acknowledgment and demonstrated understanding. Disclaimer: Inadvertent spelling and grammatical errors are likely due to EHR/dictation software use and do not reflect on the overall quality of patient care. Also, please note that the electronic time recorded on this note does not necessarily reflect the actual time of the patient encounter. Departure Diagnosis: Primary Impression: Excessive vaginal bleeding Condition: Stable Patient Instructions: Menorrhagia [facility] Additional Instructions: Muchas jeff por [facility] para jasso servicio. Esperamos que en jasso visita a la sola de emergencia jasso problema medico haya sido solucionado y que se sienta mucho mejor. Para estar seguros que jasso mejoria sigue en proceso, le pedimos el favor de hacer tresa morgan de seguimiento medico con jasso doctor primario en los proximos 2-4 gil. Lleve con usted estos documentos y las medicinas recetadas. Si rima sintomas empeoran, NO SE ESPERE, por favor regrese a sola de emergencia INMEDIATAMENTE. En yaya que usted no tenga un mdico de atencin primaria: Llame al mdico o clnica comunitaria de referencia que aparece abajo mark las horas de consultorio para hacer tresa morgan para que le vean. CLINICAS: [facility] [phone] [facility] [phone] [facility] [phone] [facility] [phone] [facility] [phone] [facility]. [phone] YOEL AMADOR MD Oct 07, 2018 16:17
[2018-10-07] MEDS ORDERED: IBUP-1561 PO (17:34)
== END 2018-10-07 17:40 | disposition home or self-care (01) ==
LOC: FTE 14:34
DX: N93.9 Abnormal uterine and vaginal bleeding, unspecified (principal)
CPT/HCPCS: 76856; 81025; Z7502